=== PATIENT | female | born 1955 | race Caucasian/White ===

== ENCOUNTER → 2019-01-04 | Day surgery (SDC) | payer OTHER ==
[~2019-01-04] MED LIST: ASPIR 8181 MG PO; ATORVASTATIN CA20 MG PO; CALCIUM600 MG PO; FENTANYL CITRATE/PF 100MCG/2 ML INJ ONE; HYOSCYAMINE SULFATE 0.5 MG/ML INJ ONE; MIDAZOLAM HCL 2 MG/2 ML VIAL ONE; NORTRIPTYLINE H25 MG PO; OMEPRAZOLE40 MG PO; PROPOFOL IV EMULSION 10 MG/ML 50 ML VIAL ONE; ZOLPIDEM TARTRAT5 MG PO
--- OUTSIDE RECORDS SUMMARY | 2019-01-04 08:37 | XMS REPORT ---
Author Author [facility] Address Unknown Phone Unavailable Care Team Providers Care Assembler Trim Name Role Phone Unavailable Unavailable Payers Payer Name Policy Type Policy Number Effective Date Expiration Date Problems This patient has no known problems. Allergies, Adverse Reactions, Alerts Allergy Name Allergy Type Status Severity Reaction(s) Onset Date Inactive Date Treating Clinician Comments No Known Allergies DA Active U 2010-12-29 00:00:00 Medications This patient has no known medications. Results Test Description Test Time Test Comments Text Results Atomic Results Result Comments - DOP ART PIPELINE INTEGRITY ENGINEER LEVEL RADHA 2018-12-30 09:51:00 Name: [facility] : 1955 Age/S: 63 / F [address] [place] [address] Unit #: [id number] Loc: [place] [address] Phys: Mireya Cam DPNaseem Acct: [id number] Dis Date: Status: REG CLI PHONE #: [phone] Exam Date: 12/30/2018937 FAX #: [phone] Reason: PVD EXAMS: CPT CODE: [id number] DOP ART PIPELINE INTEGRITY ENGINEER LEVEL RADHA [id number] PROCEDURE: BILATERAL LOWER EXTREMITY ARTERIAL DOPPLER INDICATION: 63-year-old female with peripheral vascular disease COMPARISON: None. TECHNIQUE: Duplex imaging of the bilateral lower extremity arteries was performed. FINDINGS: RIGHT: PRESSURES: BRACHIAL: 117 POSTERIOR TIBIAL: 153 DORSALIS PEDIS: 145 MANDY: 1.31 Triphasic waveforms in the common femoral, femoral, popliteal, posterior tibial and dorsalis pedis arteries. LEFT: PRESSURES: BRACHIAL: 116 POSTERIOR TIBIAL: 156 DORSALIS PEDIS: 126 MANDY: 1.33 Triphasic waveforms in the common femoral, femoral, popliteal, posterior tibial and dorsalis pedis arteries. IMPRESSION: 1. Normal bilateral ABIs. 2. No arterial Doppler evidence of significant peripheral arterial occlusive disease. SL: [id number] at 0951 Reported and signed by: Angeles Fitch M.D. PAGE 1 Signed Report (CONTINUED) Name: [facility] : 1955 Age/S: 63 / F [address] [place] [address] Blvd Unit #: [id number] Loc: [place] [address] Phys: Mireya Cam DPM Acct: [id number] Dis Date: Status: REG CLI PHONE #: [phone] Exam Date: 12/30/2018937 FAX #: [phone] Reason: PVD EXAMS: CPT CODE: [id number] DOP ART PIPELINE INTEGRITY ENGINEER LEVEL RADHA 27262 <Continued> CC: Nora Amaya MD; Mireya Cam DPM Technologist: Lakesha Petersen RDMS(BR)(AB); ... Trnscb Date/Time: 12/30/2018 (0951) [email or web address] Orig Print D/T: S: 12/30/2018 (0954) Probe: PAGE 2 Signed Report
[2019-01-04 11:35] VITALS: BP 142/98
--- NOTE | 2019-01-04 19:15 | Operative Report ---
DATE OF PROCEDURE: 01/04/2019 SURGEON: Darrel Galindo MD PROCEDURES: EGD with biopsies and colonoscopy with polypectomy and biopsies. INDICATIONS FOR EGD: Acid reflux. INDICATIONS FOR COLONOSCOPY: Surveillance colonoscopy, personal history of colon polyps. History of bright-red blood per rectum. MEDICATION: The patient was done under MAC. Please see anesthesiologist's note. PROCEDURE IN DETAIL: With the patient in the left lateral decubitus position, a flexible fiberoptic Olympus gastroscope was introduced into the esophagus under direct visualization without any difficulty. There was some patchy erythema noted in the distal esophagus. A minute tongue of velvety red mucosa was noted to extend proximally from the GE junction that was biopsied to rule out Larkin's. The scope was then advanced with ease into the stomach traversing a large hiatal hernia approximately 5 cm in size. Mucosa overlying the antrum and the body revealed some patchy erythema, [id number] edema, and biopsies were obtained and sent to stain for H pylori. A cluster of gastric polyps was noted in the body and some were partially excised with cold biopsy forceps. The pylorus was of normal contour and shape, it was intubated with ease and the scope was advanced all the way to the second portion of the duodenum. Biopsies were obtained from the proximal second portion and the duodenal bulb to rule out sprue. The scope was then withdrawn back into the stomach and retroflexed, and the previously described hiatal hernia was also noted in the retroflexed position. The scope was then straightened out and was subsequently withdrawn. The patient tolerated the procedure well. IMPRESSION: 1. Distal esophagitis, mild. 2. Rule out Larkin esophagus. 3. Large hiatal hernia, approximately 5 cm in size. 4. Gastritis, biopsied. Biopsies sent to stain for Helicobacter pylori. 5. Gastric body polyps, some partially excised with the cold biopsy forceps. 6. Rule out sprue. PLAN: Follow up histology. Initiate Protonix 40 mg one p.o. q.a.m. a.c. The patient was then turned around after adequate lubrication of the anal canal. The flexible fiberoptic Olympus colonoscope was inserted into the rectum with ease and advanced all the way to the cecum. Mucosa overlying the cecum appeared to be within normal limits. Some ulcerations were noted in the proximal ascending colon and biopsies were obtained. Diverticular disease was also noted in the ascending colon and scattered throughout the colon with prominence in the distal descending and sigmoid colon. The mucosa overlying the sigmoid colon revealed some patchy intense erythema and moderate edema. Biopsies were obtained. Two minute polyps were hot biopsied from the rectum. The scope was then retroflexed into the distal rectum and small internal hemorrhoids were noted, none of which was actively bleeding. The scope was then straightened out and it was subsequently withdrawn. The patient tolerated the procedure well. IMPRESSION: 1. Diverticulosis. 2. Ulcers, ascending colon, biopsied. 3. Sigmoiditis, biopsied. 4. Rectal polyps x2 hot biopsied. 5. Internal hemorrhoids, none actively bleeding. PLAN: Follow up histology. Initiate high-fiber, low-fat diet. Initiate high-fiber supplement. The patient might benefit from a followup colonoscopy in 3-5 years. Darrel Galindo MD [facility] [place] /[id number] cc: Nora Amaya MD
== END | disposition home or self-care (01) ==
LOC: OR 08:36
PROVIDERS: ATTEND Internal Medicine Gastroenterology
DX: Z12.11 Encounter for screening for malignant neoplasm of colon (principal); K57.30 Diverticulosis of large intestine without perforation or abscess without bleeding; K55.039 Acute (reversible) ischemia of large intestine, extent unspecified; K44.9 Diaphragmatic hernia without obstruction or gangrene; K21.0 Gastro-esophageal reflux disease with esophagitis; R14.2 Eructation; K92.1 Melena; R14.3 Flatulence; R14.1 Gas pain; K64.8 Other hemorrhoids; R03.0 Elevated blood-pressure reading, without diagnosis of hypertension; R15.1 Fecal smearing; Z68.35 Body mass index [BMI] 35.0-35.9, adult; Z86.010 Personal history of colon polyps; Z87.891 Personal history of nicotine dependence; K29.70 Gastritis, unspecified, without bleeding; K31.7 Polyp of stomach and duodenum; K52.9 Noninfective gastroenteritis and colitis, unspecified; K62.1 Rectal polyp; K63.3 Ulcer of intestine
CPT/HCPCS: 43239; 45384; 93005; J1980; J2250; J2704; 45378; 45380

== ENCOUNTER → 2021-01-17 | Outpatient (CLI) | payer OTHER ==
[~2021-01-17] MED LIST changes: +COVID-19 VACC, MRNA(MODERNA)/PF 100 MCG/0.5 ML VIAL IM ONE; -FENTANYL CITRATE/PF 100MCG/2 ML INJ ONE; -HYOSCYAMINE SULFATE 0.5 MG/ML INJ ONE; -MIDAZOLAM HCL 2 MG/2 ML VIAL ONE; -PROPOFOL IV EMULSION 10 MG/ML 50 ML VIAL ONE
== END ==
LOC: VACCPMC 09:59
DX: Z23 Encounter for immunization (principal); Z20.822 Contact with and (suspected) exposure to COVID-19
CPT/HCPCS: 0011A; 91301

== ENCOUNTER → 2021-02-14 | Outpatient (CLI) | payer BC, OTHER | END | disposition home or self-care (01) | LOC: VACCPMC 12:00 | DX: Z23 Encounter for immunization (principal); Z20.822 Contact with and (suspected) exposure to COVID-19 | CPT/HCPCS: 91301 ==

== ENCOUNTER → 2023-01-23 | Outpatient (CLI) | payer MEDICARE ==
[~2023-01-23] MED LIST changes: -COVID-19 VACC, MRNA(MODERNA)/PF 100 MCG/0.5 ML VIAL IM ONE; +REGADENOSON 0.4 MG/5 ML SYR IV ONE
== END ==
LOC: NM 09:00
PROVIDERS: ATTEND Internal Medicine Cardiovascular Disease
DX: R07.9 Chest pain, unspecified (principal)
CPT/HCPCS: 78452; 93017; A9502; J2785

== ENCOUNTER → 2024-02-25 | Outpatient (REF) | payer MEDICARE ==
[~2024-02-25] MED LIST changes: -REGADENOSON 0.4 MG/5 ML SYR IV ONE
== END ==
LOC: CT 12:08
PROVIDERS: ATTEND Internal Medicine
DX: J44.9 Chronic obstructive pulmonary disease, unspecified (principal); F17.211 Nicotine dependence, cigarettes, in remission
CPT/HCPCS: 71250